=== PATIENT | male | born 1940 | race Caucasian/White ===

== ENCOUNTER → 2022-02-15 13:19 | Outpatient (CLI) | payer MEDICARE, SELFPAY ==
--- NOTE | ~2022-02-15 | US_ITS ---
EXAMINATION: US soft tissue LE LT EXAM DATE: 02/15/2022 14:02 INDICATION: R22.42 - Localized swelling, mass and lump, left lower limb. TECHNIQUE: Multiple grayscale and Doppler images of the left upper leg/groin medially were obtained ( by a technologist who performed the scan) and subsequently reviewed. There is no prior study for stuart pimentel. FINDINGS: There are several small inguinal lymph nodes. Echogenic masslike region which appears to be partially surrounding the nonthrombosed greater saphenous vein demonstrating internal vascularity. Differentia l diagnosis includes inguinal hernia, hyperechoic lymphadenopathy, lipoma, myositis ossificans (diffi cult to determine if this involves the muscle). IMPRESSION: Nonspecific masslike region at the inner upper aspect of thigh/inguinal canal, some diffe rential considerations above. Recommend CT pelvis (with contrast if able, and please specify upper th igh area of interest to ensure coverage). Reviewed, dictated and finalized at location B. IMPRESSION: Nonspecific masslike region at the inner upper aspect of thigh/ingu inal canal, some differential considerations above. Recommend CT pelvis (with c ontrast if able, and please specify upper thigh area of interest to ensure cove rage).
== END ==
PROVIDERS: PCP Family Medicine; Visit Provider Surgery
DX: R22.42 Localized swelling, mass and lump, left lower limb (principal)
CPT/HCPCS: 76882